=== PATIENT | male | born 1995 | race American Indian/Alaskan Native ===

== ENCOUNTER 2017-11-12 07:22 | Emergency (ER) | payer SELFPAY ==
--- NOTE | 2017-11-12 08:04 | Emergency Department Report ---
ED Abdominal Pain HPI - General Chief Complaint: Abdominal Pain Stated Complaint: ABD PAIN Time Seen by Provider: 11/12/17 08:04 Source: patient Mode of arrival: Stretcher Limitations: Physical Limitation - History of Present Illness MD Complaint: abdominal pain, flank pain -: Sudden, This morning Location: R flank Radiation: none Migration to: no migration Severity: severe Severity scale (0 -10): 10 Quality: cramping, sharp Consistency: constant Improves With: medication Worsens With: nothing Associated Symptoms: nausea, vomiting. denies: diarrhea, chills, constipation, dysuria - Related Data Previous Rx's Medication Instructions Recorded Last Taken Type Cephalexin [Keflex] 500 mg PO Q8HR #30 cap 11/12/17 Unknown Rx HYDROcodone/ACETAMINOPHEN [Edison 1 each PO Q8H PRN #15 tablet 11/12/17 Unknown Rx 5-325 Tablet] Ibuprofen [Motrin] 800 mg PO Q8HR PRN #30 tablet 11/12/17 Unknown Rx Ondansetron [Zofran Odt] 4 mg PO Q8HR PRN #25 tab.rapdis 11/12/17 Unknown Rx Allergies Allergy/AdvReac Type Severity Reaction Status Date / Time No Known Allergies Allergy Unverified 11/12/17 07:42 ED Review of Systems ROS: Stated complaint: ABD PAIN Other details as noted in HPI Comment: All other systems reviewed and negative Constitutional: denies: chills, fever Eyes: denies: eye pain, eye discharge ENT: denies: ear pain, dental pain Respiratory: denies: see HPI, shortness of breath Cardiovascular: denies: chest pain, palpitations, edema Endocrine: no symptoms reported Gastrointestinal: abdominal pain, nausea, vomiting. denies: diarrhea, constipation Genitourinary: denies: urgency, dysuria, frequency Musculoskeletal: denies: back pain Skin: denies: rash, lesions Neurological: denies: headache, weakness, numbness Psychiatric: denies: anxiety, depression Hematological/Lymphatic: denies: easy bleeding, easy bruising ED Past Medical Hx - Social History Smoking Status: Never Smoker Substance Use Type: None - Medications Home Medications: Home Medications Medication Instructions Recorded Confirmed Last Taken Type Cephalexin [Keflex] 500 mg PO Q8HR #30 cap 11/12/17 Unknown Rx HYDROcodone/ACETAMINOPHEN [Edison 1 each PO Q8H PRN #15 tablet 11/12/17 Unknown Rx 5-325 Tablet] Ibuprofen [Motrin] 800 mg PO Q8HR PRN #30 tablet 11/12/17 Unknown Rx Ondansetron [Zofran Odt] 4 mg PO Q8HR PRN #25 tab.rapdis 11/12/17 Unknown Rx ED Physical Exam - General Limitations: No Limitations General appearance: alert, in distress - Head Head exam: Present: atraumatic, normocephalic, normal inspection - Eye Eye exam: Present: normal appearance, PERRL, EOMI Pupils: Present: normal accommodation - ENT ENT exam: Present: normal exam, mucous membranes moist - Neck Neck exam: Present: normal inspection, full ROM. Absent: tenderness - Respiratory Respiratory exam: Present: normal lung sounds bilaterally. Absent: respiratory distress, wheezes, rales, rhonchi, stridor - Cardiovascular Cardiovascular Exam: Present: regular rate, normal rhythm, normal heart sounds - GI/Abdominal GI/Abdominal exam: Present: soft, tenderness (RLQ), guarding, normal bowel sounds. Absent: distended, rebound - Rectal Rectal exam: Present: deferred - Extremities Exam Extremities exam: Present: normal inspection, full ROM, normal capillary refill - Back Exam Back exam: Present: normal inspection, full ROM, CVA tenderness (R). Absent: CVA tenderness (L) - Neurological Exam Neurological exam: Present: alert, oriented X3, CN II-XII intact - Psychiatric Psychiatric exam: Present: normal affect, normal mood - Skin Skin exam: Present: warm, dry, intact, normal color. Absent: rash ED Course Vital Signs 11/12/17 11/12/17 11/12/17 07:25 07:30 07:37 Temperature 98.2 F Pulse Rate 65 79 82 Respiratory 13 11 L 14 Rate Blood Pressure 142/91 132/74 Blood Pressure [Left] O2 Sat by Pulse 100 99 96 Oximetry 11/12/17 11/12/17 11/12/17 07:47 10:42 13:23 Temperature 99.3 F Pulse Rate 68 70 Respiratory 14 16 18 Rate Blood Pressure Blood Pressure 101/64 110/63 [Left] O2 Sat by Pulse 96 99 99 Oximetry - Reevaluation(s) Reevaluation #1: 11/12/17 14:13 Patient pain is currently controlled and he has not vomited in the ED since arrival. ED Medical Decision Making - Lab Data Result diagrams: 11/12/17 07:48 11/12/17 07:48 - Radiology Data Radiology results: report reviewed, image reviewed - Medical Decision Making Right Flank Pain. Nausea and Vomiting. Critical care attestation.: If time is entered above; I have spent that time in minutes in the direct care of this critically ill patient, excluding procedure time. ED Disposition Clinical Impression: Kidney stone on right side, Acute right flank pain Nausea & vomiting Qualifiers: Vomiting type: unspecified Vomiting Intractability: non-intractable Qualified Code(s): R11.2 - Nausea with vomiting, unspecified Disposition: TO HOME OR SELFCARE Is pt being admited?: No Does the pt Need Aspirin: No Condition: Stable Instructions: Kidney Stones (ED), Abdominal Pain (ED) Additional Instructions: Please with the Urologist Dr. Jensen on Wednesday. Return to the emergency room if her condition worsens or for severe pain, nausea or vomiting. Prescriptions: Cephalexin [Keflex] 500 mg PO Q8HR #30 cap HYDROcodone/ACETAMINOPHEN [Edison 5-325 Tablet] 1 each PO Q8H PRN #15 tablet PRN Reason: Pain , Severe (7-10) Ibuprofen [Motrin] 800 mg PO Q8HR PRN #30 tablet PRN Reason: Pain, Mild (1-3) Ondansetron [Zofran Odt] 4 mg PO Q8HR PRN #25 tab.rapdis PRN Reason: Nausea And Vomiting Referrals: PRIMARY CARE, [Primary Care Provider] - 3-5 Days CHRISTINA JENSEN MD [Staff Physician] - 3-5 Days Forms: Work/School Release Form(ED) Time of Disposition: 14:21
[2017-11-12 08:13] LABS: Basophils % (Auto) 0.1 % (0.0-1.8); Eosinophils % (Auto) 0.1 % (0.0-4.3); Hematocrit 45.6 % (35.5-45.6); Hemoglobin 15.1 gm/dl (11.8-15.2); Lymphocytes # (Auto) 1.3 K/mm3 (1.2-5.4); Lymphocytes % (Auto) 7.2 % (13.4-35.0); Mean Corpuscular HGB Conc 33 % (32-34); Mean Corpuscular Hemoglobin 29 pg (28-32); Mean Corpuscular Volume 86 fl (84-94); Monocytes # (Auto) 1.2 K/mm3 (0.0-0.8); Monocytes % (Auto) 6.6 % (0.0-7.3); Platelet Count 277 K/mm3 (140-440); Red Blood Count 5.29 M/mm3 (3.65-5.03); Red Cell Distribution Width 14.4 % (13.2-15.2)
[2017-11-12] MEDS ORDERED: ZOFRAN IV ONE (08:14)
[2017-11-12] MEDS ORDERED: TORADOL IV ONE (08:14)
[2017-11-12] MEDS ORDERED: NACL 0.9% 1000 ML 1,000 ML IV ONE (08:19)
[2017-11-12 08:26] LABS: Alanine Aminotransferase 17 units/L (7-56); Albumin 4.5 g/dL (3.9-5); BUN/Creatinine Ratio 13; Blood Urea Nitrogen 14 mg/dL (9-20); Calcium 9.3 mg/dL (8.4-10.2); Hemolysis Index 10
[2017-11-12 08:29] LABS: Bilirubin,Direct < 0.2 mg/dL (0-0.2)
[2017-11-12 08:47] LABS: INR 0.98 (0.87-1.13)
[2017-11-12 08:48] LABS: Partial Thromboplastin Time 24.2 Sec. (24.2-36.6)
[2017-11-12] MEDS ORDERED: ZOSYN/NS 4.5GM/100ML 4.5 GM/100 ML VIAL IV ONE (09:00)
--- NOTE | 2017-11-12 11:17 | Cat Scan Report ---
CT scan of abdomen and pelvis with IV contrast: History: Abdominal pain. Findings: Normal liver spleen pancreas and gallbladder. Normal adrenals. Nonobstructing 3 mm calculus right kidney. There is 2 mm calculus identified at the right UV junction at the bladder. Mild hydronephrosis proximally. Normal bladder. No free intraperitoneal fluid or air. No evidence of adenopathy. No evidence of appendicitis or diverticulitis. Minimal stool in colon. No bowel distention. Impression: Nonobstructing 3 mm calculus right kidney with a obstructing 2 mm calculus at the right UV junction.
[2017-11-12 12:33] LABS: Bilirubin,Urine Negative (Negative); Color,Urine Dark Yellow (Yellow)
[2017-11-12 12:34] LABS: Blood,Urine Large (Negative); Urobilinogen,Urine < 2.0 mg/dL (<2.0)
[2017-11-12 13:03] LABS: Bacteria,Urine 1+ /HPF (Negative); Mucus,Urine 1+ /HPF
[2017-11-12 14:40] VITALS: BP 116/67
== END 2017-11-12 14:38 | disposition home or self-care (01) ==
LOC: ED 07:22
DX: N20.0 Calculus of kidney (principal)
CPT/HCPCS: 36415; 74177; 80048; 80074; 81001; 83690; 85025; 85610; 85730; 87040; 96361; 96365; 96375; 99284; J1885; J2405; J2543; J7030; Q9967